=== PATIENT | female | born 1990 | race African-American/Black ===

== ENCOUNTER → 2017-07-24 | Outpatient (CLI) | payer OTHER ==
--- NOTE | 2017-07-24 16:18 | KCIC ---
OB ULTRASOUND, > 14 WEEKS Clinical Indication: Anatomy scan. Comparison: None. Technique: Multiple grayscale images, color Doppler, and M-mode images of the uterus are obtained. Findings: There is a single intrauterine gestation in breech presentation. The placenta is posterior in location without evidence of placenta previa. The amount of amniotic fluid appears appropriate. Amniotic fluid index is 12.7 cm. The cervix is not well visualized. Biometrical data: BPD = 4.4 cm for 19 weeks 3 days. HC = 17.4 cm for 20 weeks 0 days. AC = 14.5 cm for 19 weeks 6 days. FL = 3.2 cm for 19 weeks 6 days. HC/AC ratio = 1.2. Overall, the estimated sonographic gestational age is 19 weeks and 6 days for an estimated date of delivery of December 12, 2017. The estimated date of delivery provided by the last menstrual period is December 11, 2017. Estimated weight is 315 +/- 47 grams. A 4 chamber heart is identified with positive cardiac activity. The estimated heart rate is 147 beats per minute. Bilateral upper and lower extremities are identified. There is a three-vessel cord with cord insertion visualized. stomach and urinary bladder are identified. Both kidneys are seen. The visualized spine and brain are unremarkable. No obvious anatomic abnormalities are identified. IMPRESSION: 1. Single live intrauterine gestation with estimated sonographic gestational age of 19 weeks and 6 days. 2. No obvious anatomic abnormality. Electronically signed by: Anderson Simpson MD (07/24/2017 4:15 PM) [id number]
== END | disposition home or self-care (01) ==
LOC: KCIC US 14:25
PROVIDERS: ATTEND Obstetrics & Gynecology
DX: O26.842 Uterine size-date discrepancy, second trimester (principal); N91.2 Amenorrhea, unspecified; Z3A.19 19 weeks gestation of pregnancy
CPT/HCPCS: 76805

== ENCOUNTER → 2017-10-05 | Outpatient (CLI) | payer OTHER | END | disposition home or self-care (01) | LOC: KCIC US 10:50 | DX: Z34.93 Encounter for supervision of normal pregnancy, unspecified, third trimester (principal); Z3A.30 30 weeks gestation of pregnancy | CPT/HCPCS: 76805 ==